=== PATIENT | female | born 1990 | race African-American/Black ===

== ENCOUNTER 2019-02-22 20:31 | Observation (INO) | payer MEDICAID ==
[2015-01-27 08:00] VITALS: BP 106/60
[~2019-02-22 20:31] MED LIST: INSU100I13 SQ; INSU100I17 SQ; LISI2.5T PO; PARO20TA3 PO; PNV1TABL25 PO
[2019-02-22] MEDS ORDERED: IV RINGERS,LACTATED 1000ML 1,000 ML IV SCH ×2 (20:36)
[2019-02-22] MEDS ORDERED: ACETAMINOPHEN 325 MG TABLET. PO PRN (20:45)
[2019-02-22 21:01] LABS: BILIRUBIN,URINE NEGATIVE (NEG); CLARITY,URINE CLEAR; COLOR,URINE YELLOW; NITRITE,URINE POSITIVE (NEG); PROTEIN,URINE 100 mg/dL (NEG-TRACE); UROBILINOGEN,URINE 0.2 mg/dL (0.2 mg/dL)
[2019-02-22 21:07] LABS: BARBITURATES NEG (NEG); BENZODIAZEPINES NEG (NEG); CANNABINOIDS NEG (NEG); COCAINE NEG (NEG); METHADONE NEG (NEG); OPIATES NEG (NEG); PHENCYCLIDINE NEG (NEG)
[2019-02-22 21:12] LABS: BACTERIA,URINE MODERATE /HPF (0-FEW); RBC,URINE TNTC /HPF (0-2); SQUAMOUS EPITHELIAL CELL,UR FEW /LPF; WBC,URINE TNTC /HPF (0-4)
[2019-02-22 21:13] LABS: AMPHETAMINE/METHAMPHETAMINE NEG (NEG)
[2019-02-22] MEDS ORDERED: IV NORMAL SALINE 1000ML BAG 1,000 ML IV ONE (22:00)
[2019-02-22 22:38] LABS: BASO # 0.1 x10^3/uL (0.0-0.2); BASO % 1 % (0-3); EOS # 0.1 x10^3/uL (0.0-0.7); EOS % 1 % (0-3); HEMATOCRIT 31.3 % (36.0-47.0); HEMOGLOBIN 10.6 g/dL (12.0-15.5); LYMPH # 2.6 x10^3/uL (1.0-4.8); LYMPH % 27 % (24-48); MEAN CORPUSCULAR HEMOGLOBIN 24 pg (25-35); MEAN CORPUSCULAR HGB CONC 34 g/dL (31-37); MEAN CORPUSCULAR VOLUME 71 fL (79-100); MONO # 0.6 x10^3/uL (0.0-1.1); MONO % 6 % (0-9); NEUT # 6.2 x10^3/uL (1.8-7.7); NEUT % 66 % (31-73); PLATELET COUNT 276 x10^3/uL (140-400); RED BLOOD COUNT 4.41 x10^6/uL (3.50-5.40); RED CELL DISTRIBUTION WIDTH 16.8 % (11.5-14.5); WHITE BLOOD COUNT 9.5 x10^3/uL (4.0-11.0)
[2019-02-22 22:48] LABS: CREATININE 0.7 mg/dL (0.6-1.0); GFR 122.4; POTASSIUM 4.1 mmol/L (3.5-5.1)
[2019-02-22 22:54] LABS: ALBUMIN 2.7 g/dL (3.4-5.0); ALBUMIN/GLOBULIN RATIO 0.6 (1.0-1.7); TOTAL BILIRUBIN 0.1 mg/dL (0.2-1.0); TOTAL PROTEIN 6.9 g/dL (6.4-8.2)
[2019-02-22 23:01] LABS: PLT ESTIMATE ADEQUATE (ADEQUATE)
[2019-02-22 23:02] LABS: ANISOCYTOSIS SLIGHT; HYPOCHROMIA SLIGHT; MICROCYTOSIS MOD; POIKILOCYTOSIS SLIGHT
[2019-02-22 23:03] LABS: OVALOCYTES FEW
== END 2019-02-22 23:59 | disposition home or self-care (01) ==
LOC: 3 SO LND 20:31
PROVIDERS: ADMIT Obstetrics & Gynecology; ATTEND Obstetrics & Gynecology
DX: O62.9 Abnormality of forces of labor, unspecified (principal); O26.892 Other specified pregnancy related conditions, second trimester; R30.9 Painful micturition, unspecified; Z3A.25 25 weeks gestation of pregnancy
CPT/HCPCS: 36415; 80053; 80307; 81001; 82962; 85025; 87086; 87186; G0378; G0379

== ENCOUNTER 2019-04-27 09:33 | Observation (INO) | payer MEDICAID ==
[2015-01-27 08:00] VITALS: BP 106/60
[2019-04-27] MEDS ORDERED: IV RINGERS,LACTATED 1000ML 1,000 ML IV PRN (09:45)
--- NOTE | 2019-04-27 14:25 | RAD ---
Examination: BIOPHY PRO W/O NON STR ADD' History: Type 1 diabetes Comparison/Correlation: None Findings: Biophysical profile exam was performed. breathing movements, motion, tone, and amniotic fluid volume each have a score of 2/2. Posterior fundal location of the placenta is present. Cephalic lie is evident. Amniotic fluid index is 17.4. The head is not well visualized on this exam. Ultrasound EDC of 06/18/2019 is evident corresponding to 32 weeks 4 days gestation. Estimated weight is 2135 g. Biparietal diameter is 7.9 cm corresponding to 31 weeks 6 day. Head circumference is 20.66 cm corresponding to 31 week 3 day. Bowel circumference is 29.5 cm corresponding to 33 weeks 3 days. Femur length is 6.5 cm corresponding to 33 weeks 5 days. Cephalic index is 88.1. Head circumference to abdominal circumference ratio is 0.97. Femur length to biparietal diameter ratio is 82.3. Femur length to head circumference ratio is 22.8. Femur length abdominal circumference measures 22.1. Impression: Biophysical profile score is 8/8. Single intrauterine gestation with average ultrasound age of 32 weeks 4 days. This is one week less than age by last menstrual period. Electronically signed by: Aayush Rosario MD (04/27/2019 2:22 PM) [facility]
== END 2019-04-27 11:35 | disposition home or self-care (01) ==
LOC: 3 SO LND 09:33
PROVIDERS: ADMIT Obstetrics & Gynecology; ATTEND Obstetrics & Gynecology
DX: O24.419 Gestational diabetes mellitus in pregnancy, unspecified control (principal); Z3A.32 32 weeks gestation of pregnancy
CPT/HCPCS: 76819; G0378; G0379; 59025

== ENCOUNTER 2019-05-04 09:52 | Observation (INO) | payer MEDICAID ==
[2015-01-27 08:00] VITALS: BP 106/60
[2019-05-04] MEDS ORDERED: IV RINGERS,LACTATED 1000ML 1,000 ML IV SCH (10:10)
[2019-05-04 10:55] LABS: BILIRUBIN,URINE NEGATIVE (NEG); CLARITY,URINE CLEAR; COLOR,URINE YELLOW; NITRITE,URINE NEGATIVE (NEG); PROTEIN,URINE NEGATIVE (NEG-TRACE); UROBILINOGEN,URINE 0.2 mg/dL (0.2 mg/dL)
[2019-05-04 11:10] LABS: SQUAMOUS EPITHELIAL CELL,UR FEW /LPF
[2019-05-04 11:11] LABS: BACTERIA,URINE 0 /HPF (0-FEW); WBC,URINE OCC /HPF (0-4)
== END 2019-05-04 12:30 | disposition home or self-care (01) ==
LOC: 3 SO LND 09:52
PROVIDERS: ADMIT Obstetrics & Gynecology; ATTEND Obstetrics & Gynecology
DX: O60.03 Preterm labor without delivery, third trimester (principal); O21.2 Late vomiting of pregnancy; O24.913 Unspecified diabetes mellitus in pregnancy, third trimester; Z3A.33 33 weeks gestation of pregnancy
CPT/HCPCS: 81001; 82962; 87086; 87186; G0378; G0379

== ENCOUNTER 2019-05-15 11:07 | Observation (INO) | payer MEDICAID ==
[2015-01-27 08:00] VITALS: BP 106/60
[2019-05-15] MEDS ORDERED: IV RINGERS,LACTATED 1000ML 1,000 ML IV SCH (11:13)
[2019-05-15 11:57] LABS: AMNIO PT NEGATIVE
[2019-05-15 11:59] LABS: BILIRUBIN,URINE NEGATIVE (NEG); CLARITY,URINE CLEAR; COLOR,URINE YELLOW; NITRITE,URINE NEGATIVE (NEG); PH,URINE 6.5; PROTEIN,URINE NEGATIVE (NEG-TRACE); UROBILINOGEN,URINE 0.2 mg/dL (0.2 mg/dL)
[2019-05-15 12:11] LABS: SQUAMOUS EPITHELIAL CELL,UR MANY /LPF
[2019-05-15 12:12] LABS: BACTERIA,URINE FEW /HPF (0-FEW)
[2019-05-15 12:13] LABS: RBC,URINE 0 /HPF (0-2); YEAST,URINE PRESENT /HPF
== END 2019-05-15 12:17 | disposition home or self-care (01) ==
LOC: 3 SO LND 11:07
PROVIDERS: ADMIT Obstetrics & Gynecology; ATTEND Obstetrics & Gynecology
DX: O42.913 Preterm premature rupture of membranes, unspecified as to length of time between rupture and onset of labor, third trimester (principal); O62.9 Abnormality of forces of labor, unspecified; Z3A.34 34 weeks gestation of pregnancy
CPT/HCPCS: 36415; 81001; 84112; G0378; G0379

== ENCOUNTER 2019-05-17 10:38 | Observation (INO) | payer MEDICAID ==
[2015-01-27 08:00] VITALS: BP 106/60
[2019-05-17] MEDS ORDERED: IV RINGERS,LACTATED 1000ML 1,000 ML IV SCH (10:51)
[2019-05-17] MEDS ORDERED: ONDANSETRON PF 4 MG/2 ML VIAL. IV PRN (11:00)
[2019-05-17 11:50] LABS: BASO % 0 % (0-3); EOS % 1 % (0-3); HEMATOCRIT 33.3 % (36.0-47.0); LYMPH # 3.1 x10^3/uL (1.0-4.8); LYMPH % 44 % (24-48); MEAN CORPUSCULAR HEMOGLOBIN 23 pg (25-35); MEAN CORPUSCULAR HGB CONC 33 g/dL (31-37); MEAN CORPUSCULAR VOLUME 68 fL (79-100); MONO # 0.5 x10^3/uL (0.0-1.1); MONO % 7 % (0-9); NEUT # 3.3 x10^3/uL (1.8-7.7); NEUT % 48 % (31-73); PLATELET COUNT 253 x10^3/uL (140-400); RED BLOOD COUNT 4.87 x10^6/uL (3.50-5.40); RED CELL DISTRIBUTION WIDTH 17.2 % (11.5-14.5); WHITE BLOOD COUNT 6.9 x10^3/uL (4.0-11.0)
[2019-05-17 12:23] LABS: ALBUMIN 2.5 g/dL (3.4-5.0); ALBUMIN/GLOBULIN RATIO 0.6 (1.0-1.7); CALCIUM 8.6 mg/dL (8.5-10.1); CREATININE 0.5 mg/dL (0.6-1.0); GFR 179.1; POTASSIUM 3.9 mmol/L (3.5-5.1); TOTAL BILIRUBIN 0.2 mg/dL (0.2-1.0); TOTAL PROTEIN 6.7 g/dL (6.4-8.2)
[2019-05-17 14:00] LABS: ANISOCYTOSIS SLIGHT; HYPOCHROMIA SLIGHT; MICROCYTOSIS MARKED; PLT ESTIMATE ADEQUATE (ADEQUATE)
[2019-05-17 14:01] LABS: TOXIC GRANULATION SLIGHT
--- NOTE | 2019-05-17 16:14 | RAD ---
Biophysical profile: Clinical indications: Gestational diabetes. Findings: A single intrauterine is present in the cephalic position. heart rate is 160. breathing movements: 2. motion: 2. tone: 2. Amniotic fluid volume: 2. Therefore, the biophysical profile score is 8 out of 8. Cervical length is cm. BARB using the 4 quadrant method is 16.3 cm. Average umbilical cord S/D ratio is . BPD is 8.90 cm which equals 36 weeks 0 days. HC is 32.04 cm which equals 36 weeks 1 day. AC is 32.61 cm which equals 36 weeks 4 days. FL is 7.27 cm which equals 37 weeks 2 days. Average gestational age by ultrasound is 36 weeks 4 days +/- 3 weeks with an EDC of June 10, 2019. Estimated weight is 6 lbs and 9 oz. Impression: Biophysical profile score is 8 out of 8. Electronically signed by: Lefty Child MD (05/17/2019 4:11 PM) [facility]
[2019-05-17] MEDS ORDERED: INSULIN LISPRO 300 UNITS/3 ML VIAL. SQ ONE (16:15)
[2019-05-17] MEDS ORDERED: INSULIN LISPRO 300 UNITS/3 ML VIAL. SQ SCH (16:30)
== END 2019-05-17 16:00 | disposition home or self-care (01) ==
LOC: 3 SO LND 10:38
PROVIDERS: ADMIT Obstetrics & Gynecology; ATTEND Obstetrics & Gynecology
DX: O21.2 Late vomiting of pregnancy (principal); Z3A.35 35 weeks gestation of pregnancy
CPT/HCPCS: 36415; 76819; 80053; 82962; 85025; 96361; 96372; 96374; G0378; G0379; J1815; J2405; J7120

== ENCOUNTER 2019-06-01 09:32 | Observation (INO) | payer MEDICAID ==
[2015-01-27 08:00] VITALS: BP 106/60
[2019-06-01] MEDS ORDERED: IV RINGERS,LACTATED 1000ML 1,000 ML IV SCH (09:41)
--- NOTE | 2019-06-01 16:02 | RAD ---
EXAM: Obstetrics sonogram; biophysical profile. HISTORY: Maternal diabetes. TECHNIQUE: Sonographic imaging of a gravid uterus was performed. COMPARISON: 05/17/2019. FINDINGS: There is a single intrauterine fetus in cephalic presentation with a normal heart rate of 143 bpm. The amniotic fluid volume is normal at 15.0 cm. The biparietal diameter is 9.11 cm, corresponding with 37 weeks and 0 days. The head circumference is 33.66 cm, corresponding with 38 weeks and 4 days. The abdominal circumference is 35.89 cm, corresponding with 39 weeks and 6 days. The femoral length is 7.73 cm, corresponding with 39 weeks and 4 days. The estimated gestational age patient combined also measurements is 38 weeks and 5 days and the estimated due date is 06/10/2019. The estimated weight is 3718 g. This corresponds with the 76th percentile for a gestational age of 38 weeks and 4 days based on LMP. There is a posterior placenta without evidence of placenta previa. The cervix is obscured. There is normal body motion, breathing motion and tone and there is a normal amniotic fluid volume of 15.0 cm. This corresponds with a biophysical profile of 8/8. IMPRESSION: 1. Single intrauterine fetus in cephalic presentation with normal heart rate and gestational age based on ultrasound measurements of 38 weeks and 5 days. 2. Normal biophysical profile of 8/8. Electronically signed by: Susan Álvarez MD (06/01/2019 4:00 PM) [email or web address]
== END 2019-06-01 10:35 | disposition home or self-care (01) ==
LOC: 3 SO LND 09:32
PROVIDERS: ADMIT Obstetrics & Gynecology; ATTEND Obstetrics & Gynecology
DX: O24.419 Gestational diabetes mellitus in pregnancy, unspecified control (principal); Z3A.37 37 weeks gestation of pregnancy
CPT/HCPCS: 76815; 76819; G0378; G0379; 59025

== ENCOUNTER 2019-06-03 10:24 | Observation (INO) | payer MEDICAID ==
[~2019-06-03] VITALS: Ht 165.1 cm; Wt 96.2 kg
[2019-06-03 11:15] VITALS: BP 127/83
[2019-06-03 11:34] LABS: BILIRUBIN,URINE NEGATIVE (NEG); CLARITY,URINE CLEAR; COLOR,URINE YELLOW; NITRITE,URINE NEGATIVE (NEG); PH,URINE 6.5; PROTEIN,URINE NEGATIVE (NEG-TRACE); UROBILINOGEN,URINE 0.2 mg/dL (0.2 mg/dL)
[2019-06-03 11:44] LABS: BACTERIA,URINE FEW /HPF (0-FEW); RBC,URINE 0 /HPF (0-2); SQUAMOUS EPITHELIAL CELL,UR MANY /LPF
[2019-06-03] MEDS: IV RINGERS,LACTATED 1000ML 1,000 ML IV SCH ×2 (12:13→12:56)
[2019-06-03] MEDS ORDERED: INSULIN LISPRO 300 UNITS/3 ML VIAL. SQ ONE (12:30)
[2019-06-08] MEDS ORDERED: INSU100I13 SQ (01:51)
[2019-06-08] MEDS ORDERED: INSU100V31 SQ (01:51)
[2019-06-10] MEDS ORDERED: IBUP-1027 PO (14:20)
== END 2019-06-03 15:15 | disposition home or self-care (01) ==
LOC: 3 SO LND 10:24
PROVIDERS: ADMIT Obstetrics & Gynecology; ATTEND Obstetrics & Gynecology
DX: O62.9 Abnormality of forces of labor, unspecified (principal); O24.419 Gestational diabetes mellitus in pregnancy, unspecified control; Z3A.37 37 weeks gestation of pregnancy; Z79.4 Long term (current) use of insulin
CPT/HCPCS: 81001; 82962; 87086; 96372; G0378; G0379; J1815; J7120